=== PATIENT | male | born 1970 | race African-American/Black ===

== ENCOUNTER 2016-11-27 17:28 | Emergency (ER) | payer MEDICAID, OTHER ==
[~2016-11-27] VITALS: Ht 180.3 cm; Wt 70.0 kg
[2016-11-27 19:18] LABS: EOSINOPHILS % 2.2 % (0.0-5.0); HEMATOCRIT. 31.8 % (42.0-52.0); HEMOGLOBIN. 10.6 g/dL (14.0-18.0); LYMPHOCYTES % 39.3 % (20.0-50.0); MEAN CORPUSCULAR HEMOGLOBIN 31.1 pg (28.0-32.0); MEAN CORPUSCULAR VOLUME 92.9 fL (80.0-94.0); MEAN PLATELET VOLUME 6.5 fl (7.4-10.4); MONOCYTES % 11.6 % (2.0-8.0); NEUTROPHILS % 45.9 % (40.0-76.0); PLATELET 201 x1000/uL (130-400); RED BLOOD CELL COUNT 3.42 mill/uL (4.7-6.1); RED CELL DISTRIBUTION WIDTH 13.5 % (11.6-14.6)
[2016-11-27 19:23] LABS: CHLORIDE 105 mEq/L (98-107)
[2016-11-27 19:31] LABS: CARBON DIOXIDE 26 mEq/L (21-32); ETHANOL BLOOD < 10 mg/dL
[2016-11-27] MEDS ORDERED: SODIUM CHLORIDE 0.9% 1,000 ML IV ONE (20:57)
[2016-11-27] MEDS ORDERED: MECLIZINE 25MG TABLET PO ONE (21:45)
[2016-11-28 01:37] VITALS: BP 118/69
== END 2016-11-28 01:57 | disposition home or self-care (01) ==
LOC: ER 17:37
DX: R53.1 Weakness (principal); I10 Essential (primary) hypertension
CPT/HCPCS: 36415; 70450; 80053; 85025; 93005; 96360; 96361; 99285; G0482; J7030; Z7610; J8597

== ENCOUNTER 2022-07-04 12:09 | Emergency (ER) | payer MEDICAID ==
[~2022-07-04] VITALS: Ht 177.8 cm; Wt 80.0 kg
[2022-07-04 12:10] VITALS: BP 172/95
[2022-07-04] MEDS ORDERED: ACETAMINOPHEN 325MG TABLET PO ONE (12:45)
[2022-07-04] MEDS ORDERED: CHLORDIAZEPOXIDE 25MG CAPSULE PO ONE (12:45)
== END 2022-07-04 13:16 ==
LOC: ER 12:15
DX: S09.90XA Unspecified injury of head, initial encounter (principal); F10.10 Alcohol abuse, uncomplicated; I10 Essential (primary) hypertension; V49.9XXA Car occupant (driver) (passenger) injured in unspecified traffic accident, initial encounter; Y90.9 Presence of alcohol in blood, level not specified; Y93.89 Activity, other specified; Y92.89 Other specified places as the place of occurrence of the external cause; Y99.8 Other external cause status
CPT/HCPCS: 99283

== ENCOUNTER 2024-01-26 14:58 | Emergency (ER) | payer MEDICAID ==
[~2024-01-26] VITALS: Ht 177.8 cm; Wt 77.0 kg
[~2024-01-26 14:58] MED LIST: ALBU18HF2 IH; FLUT1DIS3 INH; LEVO750T68 MT; OMEP20CA14 PO; TAMS-11 PO
[2024-01-26 15:00] VITALS: O2SAT 99
[2024-01-26] MEDS: LIDOCAINE HCL/EPINEPHRINE 1%-EPI 1:100,000 10ML VIAL INFIL ONE (15:15)
[2024-01-26] MEDS: TETANUS, DIPHTHERIA, PERTUSSIS VAC/PF 0.5ML (>10YR OLD) IM ONE (15:15)
[2024-01-26 15:26] VITALS: TEMP 36.66960
[2024-01-26] MEDS: LEVETIRACETAM 500MG PREMIX 100 ML IV ONE (15:32)
[2024-01-26] MEDS ORDERED: BO1 TP (17:10)
[2024-01-26 17:33] VITALS: BP 128/72; PULSE 86; RESP 16; O2SAT 99
== END 2024-01-26 17:38 | disposition home or self-care (01) ==
LOC: ER 14:58
DX: S51.812A Laceration without foreign body of left forearm, initial encounter (principal); R56.9 Unspecified convulsions; I10 Essential (primary) hypertension; F10.20 Alcohol dependence, uncomplicated; Z79.899 Other long term (current) drug therapy; Z98.890 Other specified postprocedural states; X58.XXXA Exposure to other specified factors, initial encounter; Y93.89 Activity, other specified; Y92.89 Other specified places as the place of occurrence of the external cause; Y99.8 Other external cause status
CPT/HCPCS: 73070; 73090; 70450; 72125; 90715; 12002; 90471; 96365; 99285; J1953; Z7610 ×2

== ENCOUNTER 2024-02-26 10:54 | Emergency (ER) | payer MEDICAID ==
[~2024-02-26] VITALS: Ht 172.7 cm; Wt 77.0 kg
[~2024-02-26 10:54] MED LIST changes: +BO1 TP
[2024-02-26 11:03] VITALS: BP 121/78; PULSE 60; RESP 16; TEMP 98.2; O2SAT 98
== END 2024-02-26 11:35 | disposition home or self-care (01) ==
LOC: ER 10:54
DX: S51.812D Laceration without foreign body of left forearm, subsequent encounter (principal); I10 Essential (primary) hypertension; Z48.02 Encounter for removal of sutures; Z79.899 Other long term (current) drug therapy; Z86.59 Personal history of other mental and behavioral disorders; X58.XXXD Exposure to other specified factors, subsequent encounter
CPT/HCPCS: 99281; Z7610